=== PATIENT | female | born 1960 | race Caucasian/White ===

== ENCOUNTER → 2024-02-01 12:22 | Outpatient (REF) | payer SELFPAY | LOC: HWRAD 12:22 | PROVIDERS: ATTENDING PHYSICIAN Internal Medicine Cardiovascular Disease; FAMILY PHYSICIAN Family Medicine | DX: E78.2 Mixed hyperlipidemia (principal) | CPT/HCPCS: 75571 ==

== ENCOUNTER → 2025-07-09 08:11 | Outpatient (REF) | payer BC, SELFPAY | LOC: RCS 08:11 | PROVIDERS: ATTENDING PHYSICIAN Internal Medicine Cardiovascular Disease; FAMILY PHYSICIAN Family Medicine | DX: C50.412 Malignant neoplasm of upper-outer quadrant of left female breast (principal); Z17.0 Estrogen receptor positive status [ER+] | CPT/HCPCS: 93306 ==